=== PATIENT | female | born 1995 | race Caucasian/White ===

== ENCOUNTER 2023-04-19 11:24 | Emergency (ER) | payer OTHER ==
[2023-04-19] MEDS ORDERED: KETOROLAC 15 MG/ML VIAL IVP STA (14:15)
[2023-04-19] MEDS ORDERED: METOCLOPRAMIDE 10 MG/2 ML VIAL IVP STA (14:15)
[2023-04-19] MEDS ORDERED: SODIUM CHLORIDE 0.9% 1,000 ML IV STA (14:15)
[2023-04-19] MEDS ORDERED: diphenhydrAMINE INJ 50 MG/ML VIAL IVP STA (14:16)
--- NOTE | 2023-04-19 14:16 | ED Physician Documentation ---
PD HPI HEADACHE - Stated complaint Stated Complaint: HEAD PX - Chief complaint Chief Complaint: Neuro - History obtained from History obtained from: Patient - Additional information Additional information: 27-year-old woman with history of migraines has had much better migraines and decreased frequency since starting amitriptyline couple of years ago. Last week she had a gradual onset global throbbing headache associate with nausea and mild light sensitivity. No fevers, chills. She did have a runny nose last week but that is better now. She had been trialed on 2 different triptans [place] [facility] orally which were not effective. She did get a Toradol shot a few days ago which was briefly effective. [place] and [place] will try to get results but she does not know results yet. PD PAST MEDICAL HISTORY - Past Medical History Past Medical History: Yes Neuro: Migraines Psych: Depression, Anxiety - Past Surgical History Past Surgical History: Yes General: Hiatal hernia repair - Allergies Allergies/Adverse Reactions: Allergies Allergy/AdvReac Type Severity Reaction Status Date / Time No Known Drug Allergies Allergy Verified 04/19/23 11:55 - Social History Does the pt smoke?: No Smoking Status: Never smoker PD ED PE NORMAL - Vitals Vital signs reviewed: Yes - General General: Alert and oriented X 3, No acute distress - HEENT HEENT: PERRL, EOMI - Neck Neck: Supple, no meningeal sign, No bony TTP - Neuro Neuro: Alert and oriented X 3, 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 As such I doubt subarachnoid hemorrhage. There are no infectious symptoms such as fever or stiff neck to make me suspect meningitis. No carbon monoxide exposure by history. [place] were able [place] and her CAT scan was read as normal by the radiologist. After the administration of IV Reglan, Toradol, and Benadryl she was pain-free. Departure - Departure Disposition: 01 Home, Self Care Clinical Impression: Migraine Qualifiers: Migraine type: unspecified Status migrainosus presence: with status migrainosus Intractability: not intractable Qualified Code(s): G43.901 - Migraine, unspecified, not intractable, with status migrainosus Condition: Good Record reviewed to determine appropriate education?: Yes Instructions: ED Headache Migraine Comments: You were seen today for headache. The migraine cocktail did work. Return for new or worsening symptoms. Follow-up with your primary care physician, next available appointment. Forms: PCP List
[2023-04-19 14:54] VITALS: O2SAT 100
[2023-04-19 15:21] VITALS: BP 110/69
== END 2023-04-19 15:19 | disposition home or self-care (01) ==
LOC: ED 11:24
DX: G43.901 Migraine, unspecified, not intractable, with status migrainosus (principal)
CPT/HCPCS: 96374; 96375; 99283; J1200; J2765